=== PATIENT | female | born 1980 | race Hispanic/Latino ===

== ENCOUNTER 2019-12-10 16:21 | Emergency (ER) | payer OTHER ==
[~2019-12-10] VITALS: Ht 152.4 cm; Wt 83.5 kg
--- NOTE | 2019-12-10 16:52 | NUR ---
seen in triage by
[2019-12-10] MEDS ORDERED: FENTANYL CITRATE/PF 100MCG/2 ML INJ IV ONE (17:00)
[2019-12-10 17:31] LABS: BASOPHILS # (AUTO) 0.1 (0.0-0.1); BASOPHILS % 0.4 % (0.0-1.0); EOSINOPHILS # (AUTO) 0.1 (0.0-0.4); EOSINOPHILS % 0.8 % (0.0-6.0); HEMATOCRIT 39.8 % (34.2-44.1); LYMPHOCYTES # (AUTO) 1.7 (1.0-3.2); LYMPHOCYTES % 15.2 % (18.0-39.1); MEAN CORPUSCULAR HEMOGLOBIN 29.4 pg (28-32); MEAN CORPUSCULAR HGB CONC 35.2 g/dL (31-35); MEAN CORPUSCULAR VOLUME 83.4 fL (81-99); MONOCYTES # (AUTO) 0.7 (0.2-0.8); MONOCYTES % 5.8 % (4.4-11.3); NEUTROPHILS # (AUTO) 8.7 (2.1-6.9); NEUTROPHILS % 77.4 % (38.7-80.0); PLATELET COUNT 313 x10e3/uL (140-360); RED BLOOD COUNT 4.77 x10e6/uL (3.6-5.1); RED CELL DISTRIBUTION WIDTH 12.2 % (11.7-14.4)
[2019-12-10 17:51] LABS: CLARITY,URINE SL CLOUDY (CLEAR); COLOR,URINE YELLOW (YELLOW); LEUKOCYTE ESTERASE ,URINE NEGATIVE (NEGATIVE); NITRITE,URINE NEGATIVE (NEGATIVE); PROTEIN,URINE DIPSTICK 2+ (NEGATIVE)
[2019-12-10 17:52] LABS: BILIRUBIN,URINE NEGATIVE (NEGATIVE); KETONES,URINE TRACE (NEGATIVE); URINE UROBILINOGEN 0.2 mg/dL (0.2 - 1)
[2019-12-10 17:58] LABS: ALBUMIN 3.9 g/dL (3.5-5.0); ANION GAP 17.8 mmol/L (8-16); CALCIUM 9.7 mg/dL (8.4-10.2); CREATININE, SERUM 1.18 mg/dL (0.57-1.11); POTASSIUM 3.8 mmol/L (3.5-5.1)
--- OUTSIDE RECORDS SUMMARY | 2019-12-10 17:59 | XMS REPORT | Clinical Summary ---
Author Author [facility] Organization [facility] Address Unknown Phone Unavailable Care Team Providers Care Line Appliance Assembler Name Role Phone Asked, No Pcp PCP Unavailable Allergies No Known Allergies Medications End Date Status Medication Sig Dispensed Refills Start Date Active metFORMIN (GLUCOPHAGE) Take 1,000 mg 0 1,000 mg tablet by mouth 2 (two) times a day with meals. Active Problems Not on file Family History Medical History Relation Name Comments Diabetes Maternal Aunt Heart failure Maternal Grandfather Diabetes Maternal Grandmother Relation Name Status Comments Maternal Aunt Maternal Grandfather Maternal Grandmother Social History Date Tobacco Use Types Packs/Day Years Used Never Smoker Smokeless Tobacco: Never Used Drinks/Week oz/Week Comments Alcohol Use No Alcohol Habits Answer Date Recorded How often do you have a drink containing alcohol? Never 04/27/2018 How many drinks containing alcohol do you have on No t asked a typical day when you are drinking? How often do you have six or more drinks on one Not asked occasion? Sex Assigned at Date Recorded Not on file Industry Job Start Date Occupation Not on file Not on file Not on file Travel End Travel History Travel Start No recent travel history available. 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
--- OUTSIDE RECORDS SUMMARY | 2019-12-10 17:59 | XMS REPORT | Continuity of Care Document ---
Author Author [facility] t Organization [facility] Address [address] [place] [address] Phone Unavailable Care Team Providers Care Stock And Station Agent Name Role Phone NONSTAFF PCP Unavailable Ajith MARTINEZ Attphys Unavailable LAMINE MAYER Attphys Unavailable Payers Payer Name Policy Type Policy Number Effective Date Expiration Date S rito [facility] [id number] I [facility] Miscellaneous Indemnity [id number] 2018 00:00:00 [facility] Problems Condition Name Condition Details Condition Category Status Onset Date Resolution Date Last Treatment Date Treating Clinician Comments Source Acute pharyngitis Acute pharyngitis Problem Active [facility] Pyelonephritis Problem Active C [facility] Hyperglycemia Problem Active [facility] Allergies, Adverse Reactions, Alerts This patient has no known allergies or adverse reactions. Family History Family Member Diagnosis Comments Start Date Stop Date Source Maternal aunt Diabetes Joel keita Maternal grandfather Heart failure H francisca Jimenez Maternal grandmother Diabetes Shawna Jimenez Social History Social Habit Start Date Stop Date Quantity Comments Source History SDOH Alcohol Std Drinks Joel Jimenez History SDOH Alcohol Binge Joel Jimenez Sex Assigned At Jennyfer barrera [facility] Alcohol intake 2018-04-27 00:00:00 2018-04-27 00:00:00 Current non-drinker of alcohol (finding) Joel Jimenez History SDOH Alcohol Frequency 2018-04-27 00:00:00 2018-04-27 00:00:0 0 1 Joel Jimenez Smoking Status Start Date Stop Date Source Never smoker Joel green Medications Ordered Medication Name Filled Medication Name Start Date Stop Da te Current Medication? Ordering Clinician Indication Dosage Frequency Signature (SIG) Comments Components Source metFORMIN (GLUCOPHAGE) 1,000 mg tablet 2018-04-27 02:36:37 Yes 1000mg Q.5D Take 1,000 mg by mouth 2 (two) times a day with meals. Joel Jimenez Vital Signs Vital Name Observation Time Observation Value Comments Source Body Temperature 2019-10-06 19:12:00 98.7 [degF] [facility] Weight 2019-10-06 13:06:00 184 [lb_av] [facility] BMI (Body Mass Index) 2019-10-06 13:06:00 35.9 kg/m2 [facility] Procedures Procedure Date / Time Performed Performing Clinician Sour e CT of abdomen and pelvis without contrast 2019-10-06 00:00:00 [facility] Computed tomography of abdomen and pelvis with contrast 2019 00:00:00 LAMINE MAYER [facility] Plan of Care Planned Activity Planned Date Details Comments Source Future Scheduled Test 2019-12-24 00:00:00 INFLUENZA VACCINE [code = INFLUENZA VACCINE] [facility] Future Scheduled Test 2002 00:00:00 Screening for radha gnant neoplasm of cervix (procedure) [code = 056354217] Joel Rollins Future Scheduled Test 1991-12-28 00:00:00 DIABETIC FOOT EXAM [code = DIABETIC FOOT EXAM] Joel [facility] Future Scheduled Test 1991-12-28 00:00:00 URINE MICROALBUMIN [code = URINE MICROALBUMIN] Joel [facility] Future Scheduled Test 1980 00:00:00 DIABETIC RETINAL E YE EXAM [code = DIABETIC RETINAL EYE EXAM] Joel Jimenez Instructions Diabetes and Diet [facility] Instructions Hyperglycemia [facility] Instructions Pyelonephritis [facility] Encounters Start Date/Time End Date/Time Encounter Type Admission Type Attendi [facility] Facility Care Department Encounter ID Source 2019-10-06 12:37:00 2019-10-06 19:41:00 Departed Emergency Room 1 ROSALEE MARTINEZ [facility] [id number] [facility] 2019-05-03 20:17:00 2019-05-04 00:50:00 Departed Emergency Room 1 LAMINE MAYER [facility] [id number] [facility] Results Test Description Test Time Test Comments Results Result Comments Source Capillary blood glucose measurement by glucometer (mas s/volume) 2019-10-06 19:19:00 Test Item Bedside Glucose (test code = 69426-6) 194 70-120 Meter ID: [id number]CT [facility]PELVIS WO 2019-10-06 16:55:00 [facility] [address] [address] Patient Name: BRITTNEY SHANKS MR #: [id number] : 1980 Age/Sex: 38/F Req #: [id number] Adm Physician: Ordered by: ROSALEE MARTINEZ MD Report #: [id number] Location: ER Room/Bed: Procedure: [id number] CT/CT ABDO MEN/PELVIS WO Exam Date: 10/06/19 Exam Time: 1635 REPORT STATUS: Signed EXAM: CT Abd omen and Pelvis WITHOUT contrast INDICATION: Right flank abdominal/back pain concerning for kidney stones. COMPARISON: 05/03/2019. TECHNIQUE: Abdomen and pelvis were scanned utilizing a multidetector helical scanner from the lung b ase to the pubic symphysis without administration of IV contrast. Absence of i ntravenous contrast decreases sensitivity for detection of focal lesions and v ascular pathology. Coronal and sagittal reformations were obtained. Renal ston e protocol was performed. IV CONTRAST: None. ORAL C ONTRAST: Water RADIATION DOSE: Total DLP: 667.96 mGy*cm Estimated effective dose: (DLP x 0.015 x size factor) mSv COM PLICATIONS: None FINDINGS: LINES and TUBES: None. LOWER THORAX: There is bibasilar atelectasis. HEPATOBILIARY: The liver is diffuse hypoden se compared to the spleen, consistent with diffuse hepatic diffuse hepatic slade atosis. No focal hepatic lesions. No biliary ductal dilation. GALLBLADD ER: There are cholecystectomy clips. SPLEEN: No splenomegaly. PA NCREAS: No focal masses or ductal dilatation. ADRENALS: No adrenal nodule s KIDNEYS/URETERS: Mild right hydronephrosis, and mild diffuse dilatat ion of the right ureter to the left of the UVJ is observed, without evidence o f an obstructing calculus; findings may reflect a recently passed calculus. No left-sided hydronephrosis. Punctate calculus in the lower pole of the right a nd left kidneys on images 86 series 3. Punctate calculus in the lower pole of the right kidney on image 88. GI TRACT: No abnormal distention, wall thic kening, or evidence of bowel obstruction. Appendix is normal. PELVI C ORGANS/BLADDER: Punctate calcification abutting the posterior urinary bladde r just to the right of the midline on image 155 series 3 is slightly more prom inent. Phleboliths in the posterior right hemipelvis on image 164 series 3 is unchanged. LYMPH NODES: No lymphadenopathy. VESSELS: Unremarkable. PERITONEUM / RETROPERITONEUM: No free air or fluid. BONES: Unremarkable. SOFT TISSUES: Unremarkable. IMPRESSION: 1. Mild right hydrouret eronephrosis may be secondary to a recently passed calculus. 2. Bilateral p unctate renal calculi. 3. Hepatic steatosis. 4. Status post cholecystectom y. No significant biliary dilatation. Signed by: Dr. July Wang M.D. on 10/06/2019 5:05 PM Dictated By: DEDE WANG MD, MD Electronical ly Signed By: DEDE WANG MD, MD on 10/06/191704 Transcribed By: MÓNICA on 10/06/191704 COPY TO: ROSALEE MARTINEZ MD Blood leukocytes automated count (number/volume)2019-10-06 13:15:00* Test Item Value Reference Range Interpretation Comments White Blood Count (test code = 6690-2) 9.89 4.8-10.8 [facility] erythrocytes automated count (number/volume)2019-10-06 13:15:00* Test Item Value Reference Range Interpretation Comments Red Blood Count (test code = 789-8) 5.04 3.6-5.1 [facility] hemoglobin measurement (moles/volume)2019-10-06 13:15:00* Test Item Value Reference Range Interpretation Comments Hemoglobin (test code = 03654-3) 14.9 12.0-16.0 [facility]roe[facility]ated blood hematocrit (volume fraction)2019-10-06 13:15:00* Test Item Value Reference Range Interpretation Comments Hematocrit (test code = 4544-3) 42.2 34.2-44.1 [facility]roeAutomated erythrocyte mean corpuscular xavvim1945-68-76 13:15:00* Test Item Value Reference Range Interpretation Comments Mean Corpuscular Volume (test code = 787-2) 83.7 81-99 [facility]roeAutomated erythrocyte mean corpuscular hemoglobin (mass per erythrocyte)2019-10-06 13:15:00* Test Item Value Reference Range Interpretation Comments Mean Corpuscular Hemoglobin (test code = 785-6) 29.6 28-32 [facility]roeAutomated erythrocyte mean corpuscular hemoglobin concentration measurement (mass/volume)2019-10-06 13:15:00* Test Item Value Reference Range Interpretation Comments Mean Corpuscular Hemoglobin Concent (test code = 786-4) 35.3 31-35 [facility]roeRDW EraXi-Lsn4401-43-14 13:15:00* Test Item Value Reference Range Interpretation Comments Red Cell Distribution Width (test code = 55766-1) 12.5 11.7 -14.4 [facility]roeAutomated blood platelet count (count/volume)2019-10-06 13:15:00* Test Item Value Reference Range Interpretation Comments Platelet Count (test code = 777-3) 336 140-360 [facility] neutrophil count as percentage of total cbfxzcbkbc4633-94-47 13:15:00* Test Item Value Reference Range Interpretation Comments Neutrophils (%) (Auto) (test code = 25510-3) 65.5 38.7-80.0 [facility]roeAutomated blood lymphocyte count as percentage ot total gsyuzsvxpc4763-66-91 13:15:00* Test Item Value Reference Range Interpretation Comments Lymphocytes (%) (Auto) (test code = 736-9) 25.9 18.0-39.1 [facility]roeAutomated blood monocyte count as percentage of total edpqkjwiqr3956-71-16 13:15:00* Test Item Value Reference Range Interpretation Comments Monocytes (%) (Auto) (test code = 5905-5) 5.6 4.4-11.3 [facility]roeAutomated blood eosinophil count as percentage of total cblzwgdryv7362-03-90 13:15:00* Test Item Value Reference Range Interpretation Comments Eosinophils (%) (Auto) (test code = 713-8) 1.4 0.0-6.0 [facility]roeAutomated blood basophil count as percentage of total xkfhzgvkbn4003-34-85 13:15:00* Test Item Value Reference Range Interpretation Comments Basophils (%) (Auto) (test code = 706-2) 0.9 0.0-1.0 [facility]roeFluoroscopic procedure less than one hour uyjvdfhi1058-76-98 13:15:00* Test Item Value Reference Range Interpretation Comments IM GRANULOCYTES % (test code = IM GRANULOCYTES %) 0.7 0.0- 1.0 [facility]roeAutomated blood neutrophil count 2019-10-06 13:15:00* Test Item Value Reference Range Interpretation Comments Neutrophils # (Auto) (test code = 751-8) 6.5 2.1-6.9 [facility]Blood lymphocytes count (number/volume) 2019-10-06 13:15:00* Test Item Value Reference Range Interpretation Comments Lymphocytes # (Auto) (test code = 26569-1) 2.6 1.0-3.2 [facility]roeBlood monocytes automated count (number/volume)2019-10-06 13:15:00* Test Item Value Reference Range Interpretation Comments Monocytes # (Auto) (test code = 742-7) 0.6 0.2-0.8 [facility]roeAutomated blood eosinophil count 2019-10-06 13:15:00* Test Item Value Reference Range Interpretation Comments Eosinophils # (Auto) (test code = 711-2) 0.1 0.0-0.4 [facility]roeAutomated blood basophil count (count/volume)2019-10-06 13:15:00* Test Item Value Reference Range Interpretation Comments Basophils # (Auto) (test code = 704-7) 0.1 0.0-0.1 [facility]roeFluoroscopic procedure less than one hour nnwakxhx4394-72-46 13:15:00* Test Item Value Reference Range Interpretation Comments Absolute Immature Granulocyte (auto (sarah t code = Absolute Immature Granulocyte (auto) 0.07 0-0.1 [facility] sodium measurement (moles/volume)2019-10-06 13:15:00* Test Item Value Reference Range Interpretation Comments Sodium Level (test code = 2951-2) 135 136-145 [facility] plasma potassium measurement (moles/volume)2019-10-06 13:15:00* Test Item Value Reference Range Interpretation Comments Potassium Level (test code = 2823-3) 4.0 3.5-5.1 [facility] plasma chloride measurement (moles/volume)2019-10-06 13:15:00* Test Item Value Reference Range Interpretation Comments Chloride Level (test code = 2075-0) 104 98-107 [facility] or plasma carbon dioxide, total measurement (moles/volume)2019-10-06 13:15:00* Test Item Value Reference Range Interpretation Comments Carbon Dioxide Level (test code = 2028-9) 18 22-29 [facility]erum or plasma anion ehw2408-86-42 13:15:00* Test Item Value Reference Range Interpretation Comments Anion Gap (test code = 52551-8) 17.0 8-16 [facility] or plasma urea nitrogen measurement (mass/volume)2019-10-06 13:15:00* Test Item Value Reference Range Interpretation Comments Blood Urea Nitrogen (test code = 3094-0) 12 11-16 [facility] plasma creatinine measurement (mass/volume)2019-10-06 13:15:00* Test Item Value Reference Range Interpretation Comments Creatinine (test code = 2160-0) 1.02 0.57-1.11 [facility] plasma urea nitrogen/creatinine mass oagys2742-48-13 13:15:00* Test Item Value Reference Range Interpretation Comments BUN/Creatinine Ratio (test code = 3097-3) 12 10-16 [facility]roeEstimated glomerular filtration rate (GFR) eopoytbyvvciy9108-99-92 13:15:00* Test Item Value Reference Range Interpretation Comments Estimat Glomerular Filtration Rate (test code = 379197808) > 60 >60 Ranges were taken from the National Kidney Disease Education Program and the [facility] literature.Reference ranges:60 or greater: Zunwse69-28 ( for 3 consecutive months): Chronic kidney disease 15 or less: Kidney failureHCA Houston Healthcare ConroeGlucose mfwvhfmocsc6933-43-20 13:15:00* Test Item Value Reference Range Interpretation Comments Glucose Level (test code = HII9536) 329 74-118 [facility]er[facility] or plasma calcium measurement (mass/volume)2019-10-06 13:15:00* Test Item Value Reference Range Interpretation Comments Calcium Level (test code = 18100-7) 9.7 8.4-10.2 [facility] or plasma total bilirubin measurement (mass/volume)2019-10-06 13:15:00* Test Item Value Reference Range Interpretation Comments Total Bilirubin (test code = 1975-2) 0.6 0.2-1.2 [facility] ConroeFluoroscopic procedure less than one hour oifeoaln4486-60-65 13:15:00* Test Item Value Reference Range Interpretation Comments Aspartate Amino Transf (AST/SGOT) (test code = Aspartate Amino Transf (AST/SGOT)) 28 5-34 [facility]er[facility] or plasma alanine aminotransferase measurement (enzymatic activity/volume)2019-10-06 13:15:00* Test Item Value Reference Range Interpretation Comments Alanine Aminotransferase (ALT/SGPT) (test code = 1742-6) 34 0-55 [facility]er[facility] or plasma protein measurement (mass/volume)2019-10-06 13:15:00* Test Item Value Reference Range Interpretation Comments Total Protein (test code = 2885-2) 8.0 6.5-8.1 [facility] plasma albumin measurement (mass/volume)2019-10-06 13:15:00* Test Item Value Reference Range Interpretation Comments Albumin (test code = 1751-7) 3.8 3.5-5.0 [facility]roePlasma globulin measurement (mass/volume) 2019-10-06 13:15:00* Test Item Value Reference Range Interpretation Comments Globulin (test code = 14991-9) 4.2 2.3-3.5 [facility] or plasma albumin/globulin mass yugqa0183-72-24 13:15:00* Test Item Value Reference Range Interpretation Comments Albumin/Globulin Ratio (test code = 1759-0) 0.9 0.8-2.0 [facility]er[facility] or plasma alkaline phosphatase measurement (enzymatic activity/volume)2019-10-06 13:15:00* Test Item Value Reference Range Interpretation Comments Alkaline Phosphatase (test code = 6768-6) 91 40-150 [facility]roeUrine color eqcokrcykggoa6814-70-85 13:11:00* Test Item Value Reference Range Interpretation Comments Urine Color (test code = 5778-6) YELLOW YELLOW [facility]roeUrine wknubzm2031-94-40 13:11:00* Test Item Value Reference Range Interpretation Comments Urine Clarity (test code = 99494-4) SL CLOUDY CLEAR [facility] Hospitalpecific gravity of Urine by Test strip 2019-10-06 13:11:00* Test Item Value Reference Range Interpretation Comments Urine Specific Garrett (test code = 5811-5) 1.025 1.010-1.02 5 [facility]roeUrine pH measurement by automated test tdzkq8820-01-88 13:11:00* Test Item Value Reference Range Interpretation Comments Urine pH (test code = 79955-6) 5.5 5-7 [facility]roeUrine leukocyte esterase detection by pybdvsqq2804-57-21 13:11:00* Test Item Value Reference Range Interpretation Comments Urine Leukocyte Esterase (test code = 5799-2) NEGATIVE NEGATIVE [facility]roeUrine nitrite wyqbcwodx0547-54-07 13:11:00* Test Item Value Reference Range Interpretation Comments Urine Nitrite (test code = 31974-3) NEGATIVE NEGATIVE [facility]roeUrine protein measurement by test strip (mass/volume)2019-10-06 13:11:00* Test Item Value Reference Range Interpretation Comments Urine Protein (test code = 5804-0) 2+ NEGATIVE [facility]roeUrine glucose qzsxccriv8092-11-93 13:11:00* Test Item Value Reference Range Interpretation Comments Urine Glucose (UA) (test code = 2349-9) 2+ NEGATIVE [facility]roeUrine ketones detection by automated test ddfcj7882-33-03 13:11:00* Test Item Value Reference Range Interpretation Comments Urine Ketones (test code = 03260-6) NEGATIVE NEGATIVE [facility]roeUrine urobilinogen measurement by test strip (mass/volume)2019-10-06 13:11:00* Test Item Value Reference Range Interpretation Comments Urine Urobilinogen (test code = 46334-1) 0.2 0.2-1 [facility]roeUrine total bilirubin measurement (mass/volume)2019-10-06 13:11:00* Test Item Value Reference Range Interpretation Comments Urine Bilirubin (test code = 1978-6) NEGATIVE NEGATIVE [facility]roeUrine erythrocytes jczcmdjwd9221-84-09 13:11:00* Test Item Value Reference Range Interpretation Comments Urine Blood (test code = 64256-3) MODERATE NEGATIVE [facility]roeAutomated urine sediment leukocyte count by microscopy (number/high power field)2019-10-06 13:11:00* Test Item Value Reference Range Interpretation Comments Urine WBC (test code = 5821-4) 21-50 0-5 [facility]roeErythrocytes detection in urine sediment by light iihsbqrqtj0068-38-45 13:11:00* Test Item Value Reference Range Interpretation Comments Urine RBC (test code = 33665-2) 21-50 0-5 [facility]roeBacteria detection in urine sediment by light ztbqfricac0522-48-57 13:11:00* Test Item Value Reference Range Interpretation Comments Urine Bacteria (test code = 13810-5) MANY NONE [facility]roeEpithelial cells detection in urine sediment by light gpfdrxpunv1344-74-02 13:11:00* Test Item Value Reference Range Interpretation Comments Urine Epithelial Cells (test code = 13012-5) MANY NONE [facility] ConroeUrine human chorionic gonadotropin (hCG) xyckwqico5759-05-42 13:11:00* Test Item Value Reference Range Interpretation Comments Urine Test (test code = 2106-3) NEGATIVE NEGATIVE [facility]roeUrine Umsgb8010-83-87 00:21:00* Test Item Value Reference Range Interpretation Comments Urine Color (test code = 5778-6) YELLOW YELLOW [facility]roeUrine Jgglicq4743-06-99 00:21:00* Test Item Value Reference Range Interpretation Comments Urine Clarity (test code = 75844-7) HAZY CLEAR [facility]roeUrine Specific Vvxwuoc0095-08-02 00:21:00 * Test Item Value Reference Range Interpretation Comments Urine Specific Garrett (test code = 5811-5) 1.025 1.010-1.02 5 [facility]roeUrine tR5360-68-99 00:21:00* Test Item Value Reference Range Interpretation Comments Urine pH (test code = 37840-9) 6 5-7 [facility]roeUrine Leukocyte Xujbcflk3050-65-43 00:21:00* Test Item Value Reference Range Interpretation Comments Urine Leukocyte Esterase (test code = 5799-2) NEGATIVE NEGATIVE [facility]roeUrine Ivrotzw7925-80-36 00:21:00* Test Item Value Reference Range Interpretation Comments Urine Nitrite (test code = 47278-7) NEGATIVE NEGATIVE [facility]roeUrine Nazfriz7491-79-72 00:21:00* Test Item Value Reference Range Interpretation Comments Urine Protein (test code = 5804-0) 1+ NEGATIVE H [facility]roeUrine Glucose (UA)2019-05-04 00:21:00* Test Item Value Reference Range Interpretation Comments Urine Glucose (UA) (test code = 2349-9) 3+ NEGATIVE H [facility]roeUrine Izkrfsn5107-89-70 00:21:00* Test Item Value Reference Range Interpretation Comments Urine Ketones (test code = 74380-4) 3+ NEGATIVE H [facility]roeUrine Nkfhfgfrfqja8350-75-22 00:21:00* Test Item Value Reference Range Interpretation Comments Urine Urobilinogen (test code = 78004-9) 0.2 0.2-1 [facility] Gxbmdjjjr1626-64-74 00:21:00* Test Item Value Reference Range Interpretation Comments Urine Bilirubin (test code = 1978-6) NEGATIVE NEGATIVE [facility]roeUrine Tqdod1397-57-59 00:21:00* Test Item Value Reference Range Interpretation Comments Urine Blood (test code = 96952-3) NEGATIVE NEGATIVE [facility]roeUrine KUL0634-40-54 00:21:00* Test Item Value Reference Range Interpretation Comments Urine WBC (test code = 5821-4) 11-20 0-5 H [facility]roeUrine WZE4023-36-93 00:21:00* Test Item Value Reference Range Interpretation Comments Urine RBC (test code = 30089-3) 0-5 0-5 [facility]Urine Otkmmfzy9966-26-24 00:21:00* Test Item Value Reference Range Interpretation Comments Urine Bacteria (test code = 00340-7) MANY NONE H [facility]roeUrine Epithelial Meeso4899-60-80 00:21:00 * Test Item Value Reference Range Interpretation Comments Urine Epithelial Cells (test code = 28717-1) MANY NONE [facility]roeInfluenza Virus Types A,B Antigen 2019-05-04 00:16:00* Test Item Value Reference Range Interpretation Comments Influenza Virus Types A,B Antigen (test code = 37242-4) NEGATIVE NEGATIVE [facility]roeCT ABDOMEN/PELVIS [id number] 00:03:00 [facility] [address] [address] Patient Name: BRITTNEY SHANKS MR #: [id number] : 1980 Age/Sex: 38/F Req #: [id number] Adm Physician: Ordered by: LAMINE MAYER DO Report #: [id number] Location: ER Room/Bed: Procedure: [id number] CT/CT ABDOMEN/PELVIS W Exam Date: 05/03/19 Exam Time : 2350 REPORT STATUS: Signed EXA MINATION: CT of the abdomen and pelvis with contrast. TECHNIQUE: Helical CT images of the abdomen and pelvis were performed from the lung bases to the lesser trochanters after the intravenous administration of 100 cc of Isovue 3 00 and the oral administration of none. Coronal and sagittal reformatted imag es were obtained.Dose modulation, iterative reconstruction, and/or weight base d adjustment of the mA/kV was utilized to reduce the radiation dose to as low as reasonably achievable. COMPARISON: None. CLINICAL HISTORY:Abdomin al pain DISCUSSION: ABDOMEN/PELVIS: LOWER THORAX:Unremarkabl e. HEPATOBILIARY: No focal hepatic lesions. No intra-or extrahepatic bilia ry ductal dilation. Cholecystectomy. SPLEEN: No splenomegaly. PANC REAS: No focal masses or ductal dilatation. ADRENALS: No adrenal nodules. KIDNEYS/URETERS: No hydronephrosis, stones, or solid mass lesions. PEL GEOVANY ORGANS/BLADDER: The bladder is normal. PERITONEUM/RETROPERITONEUM: No free air or fluid. LYMPH NODES: No intra-abdominal, retroperitoneal, pelvic or inguinal lymphadenopathy. VESSELS: Limited evaluation GI TRACT: No distention or wall thickening. Appendix absent. BONES AND SOFT TISSUE: No bony destructive lesions. No soft tissue abnormalities. IMPRESSIO N: No acute CT finding. Signed by: Dr. Amador Chapman M.D. on 020 12:08 AM Dictated By: AMADOR CHAPMAN MD Transcribed By: MÓNICA on 05/04/197 COPY TO: LAMINE MAYER DO Sodium Natrz0057-06-32 23:19:00* Test Item Value Reference Range Interpretation Comments Sodium Level (test code = 2951-2) 132 136-145 L [facility]roePotassium [id number] 23:19:00* Test Item Value Reference Range Interpretation Comments Potassium Level (test code = 2823-3) 3.6 3.5-5.1 [facility]roeChloride [id number] 23:19:00* Test Item Value Reference Range Interpretation Comments Chloride Level (test code = 2075-0) 101 98-107 [facility]roeCarbon Dioxide [id number] 23:19:00* Test Item Value Reference Range Interpretation Comments Carbon Dioxide Level (test code = 2028-9) 19 22-29 L [facility]roeAnion [id number] 23:19:00* Test Item Value Reference Range Interpretation Comments Anion Gap (test code = 80901-1) 15.6 8-16 [facility]roeBlood Urea [id number] 23:19:00* Test Item Value Reference Range Interpretation Comments Blood Urea Nitrogen (test code = 3094-0) 19 7-26 [facility]roeCreatinine2020-01-10 23:19:00* Test Item Value Reference Range Interpretation Comments Creatinine (test code = 2160-0) 0.89 0.57-1.11 [facility]roeBUN/Creatinine [id number] 23:19:00* Test Item Value Reference Range Interpretation Comments BUN/Creatinine Ratio (test code = 3097-3) 21 6-25 [facility] ConroeEstimat Glomerular Filtration Rate 2019-05-03 23:19:00* Test Item Value Reference Range Interpretation Comments Estimat Glomerular Filtration Rate (test code = 492836861) > 60 >60 Ranges were taken from the National Kidney Disease Education Program and the [facility] literature.Reference ranges:60 or greater: Cmunad07-43 ( for 3 consecutive months): Chronic kidney disease 15 or less: Kidney failureHCA [facility] Healthcare ConroeGlucose [id number] 23:19:00* Test Item Value Reference Range Interpretation Comments Glucose Level (test code = AQK6041) 276 74-118 H [facility]roeCalcium [id number] 23:19:00* Test Item Value Reference Range Interpretation Comments Calcium Level (test code = 85257-0) 9.0 8.4-10.2 [facility]roeTotal [id number] 23:19:00* Test Item Value Reference Range Interpretation Comments Total Bilirubin (test code = 1975-2) 0.8 0.2-1.2 [facility] ConroeAspartate Amino Transf (AST/SGOT) 2019-05-03 23:19:00* Test Item Value Reference Range Interpretation Comments Aspartate Amino Transf (AST/SGOT) (test code = Aspartate Amino Transf (AST/SGOT)) 21 5-34 [facility]roeAlanine Aminotransferase (ALT/SGPT) 2019-05-03 23:19:00* Test Item Value Reference Range Interpretation Comments Alanine Aminotransferase (ALT/SGPT) (test code = 1742-6) 26 0-55 [facility]roeTotal [id number] 23:19:00* Test Item Value Reference Range Interpretation Comments Total Protein (test code = 2885-2) 7.9 6.5-8.1 [facility]roeAlbumin2020-01-10 23:19:00* Test Item Value Reference Range Interpretation Comments Albumin (test code = 1751-7) 3.7 3.5-5.0 [facility]roeGlobulin2020-01-10 23:19:00* Test Item Value Reference Range Interpretation Comments Globulin (test code = 34719-5) 4.2 2.3-3.5 H [facility] ConroeAlbumin/Globulin [id number] 23:19:00 * Test Item Value Reference Range Interpretation Comments Albumin/Globulin Ratio (test code = 1759-0) 0.9 0.8-2.0 [facility]roeAlkaline Gkrrjwfkaon7332-10-56 23:19:00* Test Item Value Reference Range Interpretation Comments Alkaline Phosphatase (test code = 6768-6) 85 40-150 [facility]roeCreatine [id number] 23:19:00* Test Item Value Reference Range Interpretation Comments Creatine Kinase (test code = 2157-6) 59 29-168 [facility]roeCreatine Kinase [id number] 23:19:00* Test Item Value Reference Range Interpretation Comments Creatine Kinase MB (test code = 52210-9) 0.40 0-5.0 [facility]roeTroponin [id number] 23:19:00* Test Item Value Reference Range Interpretation Comments Troponin I (test code = CTC1500) < 0.001 0-0.300 [facility]roeLipase2020-01-10 23:19:00* Test Item Value Reference Range Interpretation Comments Lipase (test code = 3040-3) 42 8-78 [facility]roeHuman Chorionic Gonadotropin, Quant 2019-05-03 23:19:00* Test Item Value Reference Range Interpretation Comments Human Chorionic Gonadotropin, Quant (test code = 30021-7) < 1.20 0-10 [facility]roeWhite Blood [id number] 22:51:00* Test Item Value Reference Range Interpretation Comments White Blood Count (test code = 6690-2) 13.03 4.8-10.8 H [facility]roeRed Blood [id number] 22:51:00* Test Item Value Reference Range Interpretation Comments Red Blood Count (test code = 789-8) 5.09 3.6-5.1 [facility]roeHemoglobin2020-01-10 22:51:00* Test Item Value Reference Range Interpretation Comments Hemoglobin (test code = 46980-5) 15.1 12.0-16.0 [facility]roeHematocrit2020-01-10 22:51:00* Test Item Value Reference Range Interpretation Comments Hematocrit (test code = 4544-3) 41.8 34.2-44.1 [facility]roeMean Corpuscular [id number] 22:51:00* Test Item Value Reference Range Interpretation Comments Mean Corpuscular Volume (test code = 787-2) 82.1 81-99 [facility]roeMean Corpuscular Gxnfmimxtn6147-41-95 22:51:00* Test Item Value Reference Range Interpretation Comments Mean Corpuscular Hemoglobin (test code = 785-6) 29.7 28-32 [facility]roeMean Corpuscular Hemoglobin Concent 2019-05-03 22:51:00* Test Item Value Reference Range Interpretation Comments Mean Corpuscular Hemoglobin Concent (test code = 786-4) 36.1 31-35 H [facility]roeRed Cell Distribution [id number] 22:51:00* Test Item Value Reference Range Interpretation Comments Red Cell Distribution Width (test code = 77148-0) 12.4 11.7 -14.4 [facility] ConroePlatelet [id number] 22:51:00* Test Item Value Reference Range Interpretation Comments Platelet Count (test code = 777-3) 243 140-360 [facility]roeNeutrophils (%) (Auto)2019-05-03 22:51:00 * Test Item Value Reference Range Interpretation Comments Neutrophils (%) (Auto) (test code = 06865-0) 89.0 38.7-80.0 H [facility] ConroeLymphocytes (%) (Auto)2019-05-03 22:51:00 * Test Item Value Reference Range Interpretation Comments Lymphocytes (%) (Auto) (test code = 736-9) 5.8 18.0-39.1 L [facility]roeMonocytes (%) (Auto)2019-05-03 22:51:00* Test Item Value Reference Range Interpretation Comments Monocytes (%) (Auto) (test code = 5905-5) 3.8 4.4-11.3 L [facility]roeEosinophils (%) (Auto)2019-05-03 22:51:00 * Test Item Value Reference Range Interpretation Comments Eosinophils (%) (Auto) (test code = 713-8) 0.6 0.0-6.0 [facility]roeBasophils (%) (Auto)2019-05-03 22:51:00* Test Item Value Reference Range Interpretation Comments Basophils (%) (Auto) (test code = 706-2) 0.4 0.0-1.0 [facility]roeIM GRANULOCYTES %2019-05-03 22:51:00* Test Item Value Reference Range Interpretation Comments IM GRANULOCYTES % (test code = IM GRANULOCYTES %) 0.4 0.0- 1.0 [facility]roeNeutrophils # (Auto)2019-05-03 22:51:00* Test Item Value Reference Range Interpretation Comments Neutrophils # (Auto) (test code = 751-8) 11.6 2.1-6.9 H [facility]roeLymphocytes # (Auto)2019-05-03 22:51:00* Test Item Value Reference Range Interpretation Comments Lymphocytes # (Auto) (test code = 88798-1) 0.8 1.0-3.2 L [facility]roeMonocytes # (Auto)2019-05-03 22:51:00* Test Item Value Reference Range Interpretation Comments Monocytes # (Auto) (test code = 742-7) 0.5 0.2-0.8 [facility]roeEosinophils # (Auto)2019-05-03 22:51:00* Test Item Value Reference Range Interpretation Comments Eosinophils # (Auto) (test code = 711-2) 0.1 0.0-0.4 [facility]roeBasophils # (Auto)2019-05-03 22:51:00* Test Item Value Reference Range Interpretation Comments Basophils # (Auto) (test code = 704-7) 0.1 0.0-0.1 [facility] ConroeAbsolute Immature Granulocyte (auto 2019-05-03 22:51:00* Test Item Value Reference Range Interpretation Comments Absolute Immature Granulocyte (auto (sarah t code = Absolute Immature Granulocyte (auto) 0.05 0-0.1 [facility]roeInfluenza virus A and B antigen identification by wcpcllfqvoemlahfnn1280-68-33 22:47:00* Test Item Value Reference Range Interpretation Comments Influenza Virus Types A,B Antigen (test code = 96220-3) NEGATIVE NEGATIVE [facility] ConroeArterial Blood [id number] 22:36:00* Test Item Value Reference Range Interpretation Comments Arterial Blood pH (test code = 2744-1) 7.42 7.31-7.41 H [facility] ConroeArterial Blood Partial Pressure CO2 2019-05-03 22:36:00* Test Item Value Reference Range Interpretation Comments Arterial Blood Partial Pressure CO2 (test code = 2018-11) 28 41-51 L [facility] ConroeArterial Blood Partial Pressure O2 2019-05-03 22:36:00* Test Item Value Reference Range Interpretation Comments Arterial Blood Partial Pressure O2 (test code = 2018-11) 88 80-105 [facility] ConroeArterial Blood [id number] 22:36:00* Test Item Value Reference Range Interpretation Comments Arterial Blood HCO3 (test code = 1960-4) 18 23-28 L [facility]roeArterial Blood Base [id number] 22:36:00* Test Item Value Reference Range Interpretation Comments Arterial Blood Base Excess (test code = 1925-7) -6.0 -2-3 L [facility] ConroeArterial Blood Oxygen Saturation 2019-05-03 22:36:00* Test Item Value Reference Range Interpretation Comments Arterial Blood Oxygen Saturation (test code = 2708-6) 97.0 95-98 [facility] ConroeFiO22020-01-10 22:36:00* Test Item Value Reference Range Interpretation Comments FiO2 (test code = FiO2) 21 [facility]. [facility] Obcvwrj2329-88-74 22:35:00* Test Item Value Reference Range Interpretation Comments Bedside Glucose (test code = 57166-9) 278 70-120 H Meter ID: [id number] Methodist Hospitalerum or plasma creatine kinase measurement (enzymatic activity/volume)2019-05-03 21:27:00* Test Item Value Reference Range Interpretation Comments Creatine Kinase (test code = 2157-6) 59 29-168 [facility] Hospitalerum or plasma creatine kinase MB measurement (mass/volume)2019-05-03 21:27:00* Test Item Value Reference Range Interpretation Comments Creatine Kinase MB (test code = 42515-8) 0.40 0-5.0 [facility]roeTroponin I measurement by highly sensitive enzyme tobfxazmguw8557-96-43 21:27:00* Test Item Value Reference Range Interpretation Comments Troponin I (test code = 87586-0) < 0.001 0-0.300 [facility] Hospitalerum or plasma lipase measurement (enzymatic activity/volume)2019-05-03 21:27:00* Test Item Value Reference Range Interpretation Comments Lipase (test code = 3040-3) 42 8-78 [facility] Hospitalerum or plasma chorionic gonadotropin measurement (mass/volume)2019-05-03 21:27:00* Test Item Value Reference Range Interpretation Comments Human Chorionic Gonadotropin, Quant (test code = 23821-6) < 1.20 0-10 [facility]roeArterial blood pH [id number] 21:25:00* Test Item Value Reference Range Interpretation Comments Arterial Blood pH (test code = 2744-1) 7.42 7.31-7.41 [facility] ConroepCO2 [id number] 21:25:00* Test Item Value Reference Range Interpretation Comments Arterial Blood Partial Pressure CO2 (test code = 2018-11) 28 41-51 [facility] ConroepCO2 [id number] 21:25:00* Test Item Value Reference Range Interpretation Comments Arterial Blood Partial Pressure O2 (test code = 2018-11) 88 80-105 [facility]roeArterial blood bicarbonate measurement (moles/volume)2019-05-03 21:25:00* Test Item Value Reference Range Interpretation Comments Arterial Blood HCO3 (test code = 1960-4) 18 23-28 [facility]roeArterial blood base excess by calculation 2019-05-03 21:25:00* Test Item Value Reference Range Interpretation Comments Arterial Blood Base Excess (test code = 1925-7) -6.0 -2-3 [facility]roeArterial blood oxygen saturation [id number] 21:25:00* Test Item Value Reference Range Interpretation Comments Arterial Blood Oxygen Saturation (test code = 2708-6) 97.0 95-98 [facility] ConroeFluoroscopic procedure less than one hour [id number] 21:25:00* Test Item Value Reference Range Interpretation Comments FiO2 (test code = FiO2) 21 PT. ON RACHI [facility]
[2019-12-10 18:07] LABS: BACTERIA,URINE MODERATE /HPF; EPITHELIAL CELLS,URINE FEW /LPF
[2019-12-10 18:08] LABS: URIC ACID CRYSTALS,URINE MANY (FEW)
--- NOTE | 2019-12-10 18:14 | Emergency Department Note ---
History of Present Illnes History of Present Illness Chief Complaint: Abdominal Complaints History of Present Illness This is a 38 year old female Chief Complaint Comment rt flank pain. lmp 11/07. . hx of stones. sent by pcp. Historian: Patient Arrival Mode: Car Onset (how long ago): day(s) (1) Location: R flank Quality: Sharp Radiation: Reports non-radiation Severity: moderate Onset quality: sudden Duration (how long): day(s) (1) Timing of current episode: constant Progression: worsening Chronicity: new Context: Denies recent illness, Denies recent surgery Relieving factors: none Exacerbating factors: none Associated symptoms: Reports denies other symptoms Treatments prior to arrival: none (JAYMIE MOSQUERA MD) Past Medical/Family History Physician Review I have reviewed the patient's past medical and family history. Any updates have been documented here. (JAYMIE MOSQUERA MD) Past Medical History Recent Fever: No Clinical Suspicion of Infectio: No New/Unexplained Change in Ment: No Past Medical History: Hypertension, Diabetes, Kidney Stones Other Surgery: YONATAN IN RT LEG gall bladder removal appendecitis (JAYMIE MOSQUERA MD) Other Last Tetanus: N (JAYMIE MOSQUERA MD) Review of Systems Review of Systems Constitutional: Reports no symptoms EENTM: Reports no symptoms Cardiovascular: Reports no symptoms Respiratory: Reports no symptoms Gastrointestinal: Reports no symptoms Genitourinary: Reports no symptoms, Reports other (R flank) Musculoskeletal: Reports no symptoms Integumentary: Reports no symptoms Neurological: Reports no symptoms Psychological: Reports no symptoms Endocrine: Reports no symptoms Hematological/Lymphatic: Reports no symptoms (JAYMIE MOSQUERA MD) Physical Exam Related Data Allergies: Coded Allergies: No Known Allergies (Unverified , 04/06/15) Triage Vital Signs Vital Signs Date Time Temp Pulse Resp B/P (MAP) Pulse Ox O2 Delivery O2 Flow Rate FiO2 12/10/19 16:45 98.1 94 16 157/105 100 Room Air Vital signs reviewed: Yes (JAYMIE MOSQUERA MD) Physical Exam CONSTITUTIONAL Constitutional: Present well-developed, Present well-nourished HENT HENT: Present normocephalic, Present atraumatic, Present oropharynx clear/moist, Present nose normal HENT L/R: Present left ext ear normal, Present right ext ear normal EYES Eyes: Reports PERRL, Reports conjunctivae normal NECK Neck: Present ROM normal PULMONARY Pulmonary: Present effort normal, Present breath sounds normal CARDIOVASCULAR Cardiovascular: Present regular rhythm, Present heart sounds normal, Present capillary refill normal, Present normal rate GASTROINTESTINAL Abdominal: Present soft, Present nontender, Present bowel sounds normal GENITOURINARY Genitourinary: Present exam deferred SKIN Skin: Present warm, Present dry MUSCULOSKELETAL Musculoskeletal: Present ROM normal NEUROLOGICAL Neurological: Present alert, Present oriented x 3, Present no gross motor or sensory deficits PSYCHOLOGICAL Psychological: Present mood/affect normal, Present judgement normal ( JAYMIE MOSQUERA MD) Results Laboratory Result Diagram: 12/10/19 1640 12/10/19 1640 Laboratory Laboratory Tests Test 12/10/19 16:40 White Blood Count 11.31 x10e3/uL (4.8-10.8) Red Blood Count 4.77 x10e6/uL (3.6-5.1) Hemoglobin 14.0 g/dL (12.0-16.0) Hematocrit 39.8 % (34.2-44.1) Mean Corpuscular Volume 83.4 fL (81-99) Mean Corpuscular Hemoglobin 29.4 pg (28-32) Mean Corpuscular Hemoglobin Concent 35.2 g/dL (31-35) Red Cell Distribution Width 12.2 % (11.7-14.4) Platelet Count 313 x10e3/uL (140-360) Neutrophils (%) (Auto) 77.4 % (38.7-80.0) Lymphocytes (%) (Auto) 15.2 % (18.0-39.1) Monocytes (%) (Auto) 5.8 % (4.4-11.3) Eosinophils (%) (Auto) 0.8 % (0.0-6.0) Basophils (%) (Auto) 0.4 % (0.0-1.0) Neutrophils # (Auto) 8.7 (2.1-6.9) Lymphocytes # (Auto) 1.7 (1.0-3.2) Monocytes # (Auto) 0.7 (0.2-0.8) Eosinophils # (Auto) 0.1 (0.0-0.4) Basophils # (Auto) 0.1 (0.0-0.1) Absolute Immature Granulocyte (auto 0.05 x10e3/uL (0-0.1) Urine Color Yellow (YELLOW) Urine Clarity Sl cloudy (CLEAR) Urine pH 5.5 (5 - 7) Urine Specific [place] 1.030 (1.010-1.025) Urine Protein 2+ (NEGATIVE) Urine Glucose (UA) 2+ (NEGATIVE) Urine Ketones Trace (NEGATIVE) Urine Blood Trace (NEGATIVE) Urine Nitrite Negative (NEGATIVE) Urine Bilirubin Negative (NEGATIVE) Urine Urobilinogen 0.2 mg/dL (0.2 - 1) Urine Leukocyte Esterase Negative (NEGATIVE) Urine RBC 6-10 /HPF (0-5) Urine WBC 6-10 /HPF (0-5) Urine Epithelial Cells Few /LPF (NONE) Urine Uric Acid Crystals Many (FEW) Urine Bacteria Moderate /HPF (NONE) Sodium Level 137 mmol/L (136-145) Potassium Level 3.8 mmol/L (3.5-5.1) Chloride Level 102 mmol/L (98-107) Carbon Dioxide Level 21 mmol/L (22-29) Anion Gap 17.8 mmol/L (8-16) Blood Urea Nitrogen 12 mg/dL (7-26) Creatinine 1.18 mg/dL (0.57-1.11) Estimat Glomerular Filtration Rate 52 ML/MIN (60-) BUN/Creatinine Ratio 10 (6-25) Glucose Level 219 mg/dL (74-118) Calcium Level 9.7 mg/dL (8.4-10.2) Total Bilirubin 0.8 mg/dL (0.2-1.2) Aspartate Amino Transf (AST/SGOT) 28 IU/L (5-34) Alanine Aminotransferase (ALT/SGPT) 35 IU/L (0-55) Alkaline Phosphatase 70 IU/L (40-150) Total Protein 7.8 g/dL (6.5-8.1) Albumin 3.9 g/dL (3.5-5.0) Globulin 3.9 g/dL (2.3-3.5) Albumin/Globulin Ratio 1.0 (0.8-2.0) Human Chorionic Gonadotropin, Qual Negative (NEGATIVE) (JAYMIE MOSQUERA MD) Imaging Imaging results reviewed: Yes Impressions Procedure: [id number] CT/CT ABDOMEN/PELVIS WO Exam Date: 12/10/19 Exam Time: 1810 REPORT STATUS: Signed EXAMINATION: CT of the abdomen and pelvis without contrast. TECHNIQUE: Spiral CT images of the abdomen and pelvis were performed from the lung bases to the lesser trochanters. No intravenous contrast was given per renal stone protocol. Coronal and sagittal reformatted images were obtained. COMPARISON: CT abdomen and pelvis without contrast 10/06/2019 CLINICAL HISTORY:Right flank stones, right flank pain DISCUSSION: ABSENCE OF INTRAVENOUS CONTRAST DECREASES SENSITIVITY FOR DETECTION OF FOCAL LESIONS AND VASCULAR PATHOLOGY. ABDOMEN/PELVIS: LOWER THORAX: Minimal posterior bilateral lower lobe dependent atelectasis. HEPATOBILIARY: No focal hepatic lesions. No intra or extrahepatic biliary ductal dilation. GALLBLADDER: Cholecystectomy clips. SPLEEN: No splenomegaly. PANCREAS: No focal masses or ductal dilatation. ADRENALS: No adrenal nodules. KIDNEYS/URETERS: Right: 2 mm calculus is noted in the right UVJ (series 3, image 161). Very mild right hydronephrosis and hydroureter. There is mild right perinephric and periureteral stranding. Punctate nonobstructing calculus in the superior pole (series 3, image 71). Stable 2 mm nonobstructing calculus in the right interpolar region (series 3, image 81). Stable 3-4 mm nonobstructing calculus in the mid to inferior aspect (series 3, image 85). No contour abnormalities. Left: Stable 1-2 mm nonobstructing calculus in the inferior pole (series 3, image 84). No ureteral calculi, hydronephrosis or obstruction. No contour abnormalities or significant perinephric stranding. PELVIC ORGANS/BLADDER: No focal lesions or wall thickening. Stable punctate calcification in the posterior superior bladder wall (series 3, image 155). Stable pelvic phleboliths. No adnexal masses. PERITONEUM/RETROPERITONEUM: No free air or fluid. LYMPH NODES: No intra-abdominal,retroperitoneal, pelvic or inguinal lymphadenopathy. VESSELS: Unremarkable for noncontrast exam. GI TRACT: No bowel dilation or evidence of obstruction. BONES AND SOFT TISSUES: No aggressive lytic or suspicious focal sclerotic lesions. Soft tissues are grossly unremarkable. IMPRESSION: 1. 2 mm calculus in the right UVJ, which results in very mild right hydronephrosis and hydroureter and mild right perinephric and periureteral stranding. No other ureteral calculi are identified. 2. Stable bilateral nonobstructing calculi. A punctate nonobstructing calculus in the right superior pole was not seen on the prior exam. Signed by: Dr. Storm Vinson M.D. on 12/10/2019 6:45 PM Dictated By: STORM VINSON MD 44 Transcribed By: MÓNICA on 12/10/191844 COPY TO: JAYMIE MOSQUERA MD~ (CLAUDIO FAYE MD) Assessment & Plan Medical Decision Making MDM Handed patient off to Dr. Faye at [address] (JAYMIE MOSQUERA MD) Assessment & Plan Final Impression: (1) Flank pain (JAYMIE MOSQUERA MD) Final Impression: (1) Flank pain (2) Ureterolithiasis (CLAUDIO FAYE MD) Depart Disposition: HOME, SELF-CARE Last Vital Signs Date Time Temp Pulse Resp B/P (MAP) Pulse Ox O2 Delivery O2 Flow Rate FiO2 12/10/19 16:45 98.1 94 16 157/105 100 Room Air (JAYMIE MOSQUERA MD) Medications in the ED Fentanyl Citrate 50 mcg ONCE ONCE IV Last administered on 12/10/19at 18:08; Admin Dose 50 MCG; Start 12/10/19 at 17:00; Stop 12/10/19 at 17:01; Status DC (JAYMIE MOSQUERA MD) JAYMIE MOSQUERA MD Dec 10, 2019 18:14 CLAUDIO FAYE MD Dec 10, 2019 18:59
[2019-12-10] MEDS ORDERED: SODIUM CHLORIDE 0.9% 500ML 500 ML ONE (18:29)
[2019-12-10] MEDS ORDERED: SODIUM CHLORIDE 0.9% 500ML 500 ML IV ONE (18:30)
--- NOTE | 2019-12-10 18:48 | Diagnostic Imaging Report ---
EXAMINATION: CT of the abdomen and pelvis without contrast. TECHNIQUE: Spiral CT images of the abdomen and pelvis were performed from the lung bases to the lesser trochanters. No intravenous contrast was given per renal stone protocol. Coronal and sagittal reformatted images were obtained. COMPARISON: CT abdomen and pelvis without contrast 10/06/2019 CLINICAL HISTORY:Right flank stones, right flank pain DISCUSSION: ABSENCE OF INTRAVENOUS CONTRAST DECREASES SENSITIVITY FOR DETECTION OF FOCAL LESIONS AND VASCULAR PATHOLOGY. ABDOMEN/PELVIS: LOWER THORAX: Minimal posterior bilateral lower lobe dependent atelectasis. HEPATOBILIARY: No focal hepatic lesions. No intra or extrahepatic biliary ductal dilation. GALLBLADDER: Cholecystectomy clips. SPLEEN: No splenomegaly. PANCREAS: No focal masses or ductal dilatation. ADRENALS: No adrenal nodules. KIDNEYS/URETERS: Right: 2 mm calculus is noted in the right UVJ (series 3, image 161). Very mild right hydronephrosis and hydroureter. There is mild right perinephric and periureteral stranding. Punctate nonobstructing calculus in the superior pole (series 3, image 71). Stable 2 mm nonobstructing calculus in the right interpolar region (series 3, image 81). Stable 3-4 mm nonobstructing calculus in the mid to inferior aspect (series 3, image 85). No contour abnormalities. Left: Stable 1-2 mm nonobstructing calculus in the inferior pole (series 3, image 84). No ureteral calculi, hydronephrosis or obstruction. No contour abnormalities or significant perinephric stranding. PELVIC ORGANS/BLADDER: No focal lesions or wall thickening. Stable punctate calcification in the posterior superior bladder wall (series 3, image 155). Stable pelvic phleboliths. No adnexal masses. PERITONEUM/RETROPERITONEUM: No free air or fluid. LYMPH NODES: No intra-abdominal,retroperitoneal, pelvic or inguinal lymphadenopathy. VESSELS: Unremarkable for noncontrast exam. GI TRACT: No bowel dilation or evidence of obstruction. BONES AND SOFT TISSUES: No aggressive lytic or suspicious focal sclerotic lesions. Soft tissues are grossly unremarkable. IMPRESSION: 1. 2 mm calculus in the right UVJ, which results in very mild right hydronephrosis and hydroureter and mild right perinephric and periureteral stranding. No other ureteral calculi are identified. 2. Stable bilateral nonobstructing calculi. A punctate nonobstructing calculus in the right superior pole was not seen on the prior exam. Signed by: Dr. Sergio Vinson M.D. on 12/10/2019 6:45 PM
== END 2019-12-10 19:37 | disposition home or self-care (01) ==
LOC: ER 16:45
DX: M54.5 Low back pain (principal); N20.1 Calculus of ureter; E11.65 Type 2 diabetes mellitus with hyperglycemia; I10 Essential (primary) hypertension
CPT/HCPCS: 36415; 74176; 80053; 81001; 84702; 85025; 99283; J3010; J7040

== ENCOUNTER 2020-09-29 02:36 | Emergency (ER) | payer OTHER ==
[~2020-09-29] VITALS: Ht 152.4 cm; Wt 83.5 kg
[2020-09-29] MEDS ORDERED: KETOROLAC TROMETHAMINE 60 MG/2 ML VIAL IM ONE (02:45)
[2020-09-29 02:55] LABS: CLARITY,URINE CLOUDY (CLEAR); COLOR,URINE AMBER (YELLOW); KETONES,URINE TRACE (NEGATIVE); LEUKOCYTE ESTERASE ,URINE NEGATIVE (NEGATIVE); NITRITE,URINE NEGATIVE (NEGATIVE); PROTEIN,URINE DIPSTICK 2+ (NEGATIVE); URINE UROBILINOGEN 0.2 mg/dL (0.2 - 1)
[2020-09-29 03:01] LABS: AMORPHOUS SEDIMENT,URINE MODERATE (FEW); BACTERIA,URINE FEW /HPF; EPITHELIAL CELLS,URINE MODERATE /LPF; RBC,URINE 21-50 /HPF (0-5)
[2020-09-29] MEDS ORDERED: ONDANSETRON ODT4 MG PO (04:03)
[2020-09-29] MEDS ORDERED: MOTRIN200 MG PO (04:03)
[2020-09-29] MEDS ORDERED: FLOMAX0.4 MG PO (04:03)
== END 2020-09-29 04:21 | disposition home or self-care (01) ==
LOC: ER 02:40
DX: M54.5 Low back pain (principal); N20.2 Calculus of kidney with calculus of ureter; I10 Essential (primary) hypertension; E11.9 Type 2 diabetes mellitus without complications
CPT/HCPCS: 74176; 81001; 81025; 99284; J1885